=== PATIENT | female | born 1985 | race Caucasian/White ===

== ENCOUNTER → 2016-12-28 | Outpatient (CLI) | payer OTHER ==
[~2016-12-28] MED LIST: ACETAMINOPHEN325 MG PO; HABITROL 14 MG P1 EA TOP; LEVOFLOXACIN500 MG PO; ROBITUSSIN DM473 ML PO
== END ==
LOC: KOH-I 15:43
DX: M25.572 Pain in left ankle and joints of left foot (principal)
CPT/HCPCS: 73610; 73630

== ENCOUNTER 2017-02-28 07:15 | Emergency (ER) | payer OTHER ==
[2017-02-28 08:41] LABS: HEMOGLOBIN 13.8 gm/dl (12.3-15.3); RED BLOOD COUNT 4.32 M/UL (4.00-5.10); WHITE BLOOD COUNT 13.3 K/UL (4.5-11.0)
[2017-02-28 09:10] LABS: BUN/CREATININE RATIO 18 (0-10)
== END 2017-02-28 11:45 | disposition home or self-care (01) ==
LOC: ER1 07:15
PROVIDERS: Physician Assistant
DX: R10.30 Lower abdominal pain, unspecified (principal); E53.8 Deficiency of other specified B group vitamins; F17.210 Nicotine dependence, cigarettes, uncomplicated; Z88.0 Allergy status to penicillin; Z88.6 Allergy status to analgesic agent; Z79.899 Other long term (current) drug therapy; Z87.442 Personal history of urinary calculi
CPT/HCPCS: 36415; 76705; 80053; 81001; 83690; 84703; 85025; 96374; 96375; 96376; 99284; J2270; J7050; Q9962

== ENCOUNTER → 2017-03-02 | Outpatient (CLI) | payer SELFPAY | LOC: NM 11:55 | DX: R10.11 Right upper quadrant pain (principal); R11.0 Nausea; R11.12 Projectile vomiting; R93.2 Abnormal findings on diagnostic imaging of liver and biliary tract | CPT/HCPCS: 78226; A9537 ==